=== PATIENT | female | born 1995 ===

== ENCOUNTER 2017-11-22 11:04 | Emergency (ER) | payer SELFPAY ==
--- NOTE | 2017-11-22 12:20 | ED ---
Abdominal Pain/Female - HPI Summary HPI Summary: The pt is a 22 y/o female presenting to [facility] c/o of L flank pain since 3 days ago. She notes vomiting (2 episodes), nausea, and lightheadedness but denies dysuria. The pain rated 8/10 in severity is aggravated by breathing and sitting up, and radiated to the back. She took Ibuprofen to no relief. - History of Current Complaint Chief Complaint: EDFlankPain Stated Complaint: LT FLANK PAIN Time Seen by Provider: 11/22/17 12:13 Hx Obtained From: Patient Hx Last Menstrual Period: 11/09/2017 ?: No Onset/Duration: Lasting Days - 3 days, Still Present Timing: Constant Severity Currently: Severe Pain Intensity: 8 Pain Scale Used: 0-10 Numeric Location: Flank - L side Radiates to: Back Aggravating Factor(s): Movement, Deep Breaths Alleviating Factor(s): Nothing Associated Signs and Symptoms: Positive: Back Pain, Nausea, Vomiting. Negative : Urinary Symptoms Allergies/Adverse Reactions: Allergies Allergy/AdvReac Type Severity Reaction Status Date / Time No Known Allergies Allergy Verified 11/22/17 11:11 PMH/Surg Hx/FS Hx/Imm Hx Previously Healthy: No Endocrine/Hematology History: Denies: Hx Diabetes Cardiovascular History: Denies: Hx Hypertension Respiratory History: Reports: Hx Asthma GI History: Denies: Other GI Disorders Sensory History: Denies: Hx Deafness - Cancer History Cancer Type, Location and Year: None reported Hx Hematologic Symptoms: No Hx Chemotherapy: No Hx Radiation Therapy: No - Surgical History Surgery Procedure, Year, and Place: None reported Infectious Disease History: No Infectious Disease History: Denies: Traveled Outside the [place] in Last 30 Days - Family History Known Family History: Positive: Hypertension - Both parents , Diabetes - Mother - Social History Occupation: Employed Full-time Lives: With Family Hx Substance Use: No Review of Systems Constitutional: Other - Positive:lightheadedness Positive: Abdominal Pain - L flank , Vomiting, Nausea Positive: flank pain. Negative: dysuria All Other Systems Reviewed And Are Negative: Yes Physical Exam - Summary Physical Exam Summary: Appearance: The patient is well-nourished in no acute distress and in no acute pain. Skin: The skin is warm and dry and skin color reflects adequate perfusion. HEENT: The head is normocephalic and atraumatic. The pupils are equal and reactive. The conjunctivae are clear and without drainage. Nares are patent and without drainage. Mouth reveals moist mucous membranes and the throat is without erythema and exudate. The external ears are intact. The ear canals are patent and without drainage. The tympanic membranes are intact. Neck: The neck is supple with full range of motion and non-tender. There are no carotid bruits. There is no neck vein distension. Respiratory: Chest is non-tender. Lungs are clear to auscultation and breath sounds are symmetrical and equal. Cardiovascular: Heart is regular rate and rhythm. There is no murmur or rub auscultated. There is no peripheral edema and pulses are symmetrical and equal. Abdomen: The abdomen is soft and non-tender. There are normal bowel sounds heard in all four quadrants and there is no organomegaly palpated. Musculoskeletal: Mild tenderness to palpation in the L sciatica.Extremities are non-tender with full range of motion. There is good capillary refill. There is no peripheral edema or calf tenderness elicited. Neurological: Patient is alert and oriented to person, place and time. The patient has symmetrical motor strength in all four extremities. Cranial nerves are grossly intact. Deep tendon reflexes are symmetrical and equal in all four extremities. Psychiatric: The patient has an appropriate affect and does not exhibit any anxiety or depression. Triage Information Reviewed: Yes Vital Signs On Initial Exam: Initial Vitals Temp Pulse Resp BP Pulse Ox 97.1 F 88 18 129/78 97 11/22/17 11:11 11/22/17 11:11 11/22/17 11:11 11/22/17 11:11 11/22/17 11:11 Vital Signs Reviewed: Yes Diagnostics - Vital Signs Vital Signs Temp Pulse Resp BP Pulse Ox 11/22/17 11:11 97.1 F 88 18 129/78 97 - Laboratory Result Diagrams: 11/22/17 12:25 11/22/17 12:25 Lab Statement: Any lab studies that have been ordered have been reviewed, and results considered in the medical decision making process. Abdominal Pain Fem Course/Dx - Course Course Of Treatment: Ms. Cuong Drummond presented to the emergency department complaining of the gradual onset over the last couple days of left low back/ flank pain. It has been gradually getting worse to the point where she had to leave work yesterday. It hurts more to move. She denies any urinary problems, change in bowel habits or problems with her period. On exam she had tenderness in the left sciatic area and positive left leg raise. Labs including a UA were obtained and were unremarkable. She will be treated symptomatically and given a couple days off work recommended follow-up if not improved. - Diagnoses Provider Diagnoses: Sciatica Discharge - Sign-Out/Discharge Documenting (check all that apply): Patient Departure - DC - Discharge Plan Condition: Stable Disposition: HOME Prescriptions: traMADol TAB* [Ultram*] 50 mg PO BEDTIME #5 tab MDD 1 Patient Education Materials: Sciatica (ED) Forms: *Work Release Referrals: [facility] [Outside] - 2 Days Additional Instructions: Follow up with your PCP in 2 days Return to ED for any new or worsening symptoms - Billing Disposition and Condition Condition: STABLE Disposition: Home - Attestation Statements Document Initiated by Clemenciaibe: Yes Documenting Scribe: Tosha Dougherty Provider For Whom Scribe is Documenting (Include Credential): Lenin Felipe MD Scribe Attestation: Tosha Galaviz scribed for Lenin Felipe MD on 11/23/17 at 1434. Scribe Documentation Reviewed: Yes Provider Attestation: The documentation as recorded by the Tosha howe accurately reflects the service I personally performed and the decisions made by , Lenin Felipe MD
[2017-11-22] MEDS ORDERED: Ketorolac INJ* 30 MG/ML 1 ML VIAL IV PUSH ONE (12:21)
[2017-11-22 12:54] LABS: EGFR Non-African American 122.6 (>60)
[2017-11-22 13:08] LABS: Hematocrit 29 % (35-47); Hemoglobin 9.2 g/dl (12.0-16.0); Mean Corpuscular HGB Conc 32 g/dl (31-36); Mean Corpuscular Hemoglobin 23 pg (27-31); Mean Corpuscular Volume 73 fL (80-97); Mean Platelet Volume 6.5 um3 (7.4-10.4); Platelet Count 405 10^3/ul (150-450); Red Blood Count 3.99 10^6/ul (4.00-5.40); Red Cell Distribution Width 19 % (10.5-15); White Blood Count 5.2 10^3/ul (3.5-10.8)
[2017-11-22 13:44] LABS: ABS Basophils 0 10^3/ul (0-0.2); ABS Eosinophils 0.1 10^3/ul (0-0.6); ABS Monocytes 0.4 10^3/ul (0-0.8); ABS Neutrophils 2.7 10^3/ul (1.5-7.7); ABS Nucleated RBC 0 10^3/ul; Eosinophil % 2.7 % (0-6); Lymphocyte % 38.1 % (25-47); Nucleated Red Blood Cells % 0.2
[2017-11-22 13:52] LABS: Urine Appearance Cloudy; Urine Blood Negative (Negative); Urine Color Yellow; Urine Ketones Negative (Negative); Urine Protein Negative (Negative); Urine Urobilinogen Negative (Negative)
[2017-11-22 16:08] VITALS: BP 107/67
== END 2017-11-22 15:50 | disposition home or self-care (01) ==
LOC: ED 11:04
DX: M54.42 Lumbago with sciatica, left side (principal); R11.2 Nausea with vomiting, unspecified; R42 Dizziness and giddiness
CPT/HCPCS: 36415; 80053; 81003; 84702; 85025; 86140; 96374; 99283; J1885